=== PATIENT | male | born 2000 | race Asian ===

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

== ENCOUNTER 2022-11-21 10:28 | Emergency (ER) | payer OTHER, SELFPAY ==
[2022-11-21 10:29] VITALS: BP 129/87; PULSE 55; RESP 14; TEMP 36.1; O2SAT 100; BMI 23.3
--- NOTE | 2022-11-21 10:41 | CT_ITS ---
STUDY: CT ABDOMEN AND PELVIS WITH CONTRAST REASON FOR EXAM: Male, 22 years old. Periumbilical pain, vomiting -- IV PO Contrast RADIATION DOSAGE (If Supplied By Facility): CTDIvol = ( 8.79 ) mGy, DLP = ( 395.26 ) mGycm TECHNIQUE: Transaxial images were obtained from the dome of the diaphragm to the symphysis pubis with oral contrast. Oral and amp;amp; IV Gastrografin and amp;amp; 100mL Isovue-370 was administered. Sagittal and coronal images were reconstructed. Individualized dose optimization techniques were used for this CT. COMPARISON: None. FINDINGS: The visualized lung bases are unremarkable. The visualized portions of the heart are within normal limits. Normal liver. Normal gallbladder and extrahepatic biliary system. Normal spleen. Normal pancreas. Normal bilateral adrenal glands. Normal right kidney. Normal left kidney. Normal visualized stomach. Normal small intestine. A large amount of fecal material is seen in the right hemicolon. There is non-visualization of the appendix. Normal abdominal aorta. Normal inferior vena cava. Normal retroperitoneum. Mild to moderate degree of diffuse bladder wall thickening. Small amount of free fluid is seen in the cul-de-sac. Normal abdominal wall. Normal osseous structures. CT/Abdomen/Pelvis WITH Contrast IMPRESSION: Bladder wall thickening. Minimal amount of free fluid is seen in the cul-de-sac. The appendix is not visualized. Electronically Signed: Braxton Gaxiola MD at 12:37 EST ,
--- NOTE | 2022-11-21 10:42 | ED.VIS.GI ---
HPI HPI - GI History of Present Illness Chief Complaint: Abd Pain Informant: patient Abdominal Pain/Flank Pain Onset: Today Context: Gradual Onset Timing: Continuous Quality: Aching and Dull Location: Diffuse Current Severity: Moderate Maximum Severity: Moderate Worsened by: Nothing Relieved by: Nothing Nausea/Vomiting/Emesis GI Symptom: Positive for Nausea and Vomiting Onset: Today Quality: Positive for Nonbilious; Negative for Blood streaks, Coffee ground or Hematemesis Severity: Severe Diarrhea/Melena/Hematochezia GI Symptom: Negative for Diarrhea, Melena or Hematochezia Associated Symptoms Associated Symptoms: Negative for Dysuria, Frequency, Hematuria or Urgency Narrative Narrative: 22-year-old healthy male presenting with diffuse abdominal pain that he woke up with this morning followed by vomiting. It is nonbloody, nonbilious. No fevers or chills that he knows of. No known sick contacts. No history of any abdominal surgeries. Seen initially at urgent care, but outside of their capabilities and referred here out of concern for appendicitis and given a dose of Zofran initially. PFSH PFSH Medical History no medical history no medical history Home Medications ondansetron 4 mg disintegrating tablet 8 mg PO Q8H PRN PRN Nausea #20 tabs 11/21/22 [Rx Last Taken Unknown] Allergy/AdvReac Type Severity Reaction Status Date / Time No Known Allergies Allergy Verified 11/21/22 10:29 Surgical History no surgical history no surgical history Social History Smoking Status: Current every day smoker tobacco type: e-cigarettes ROS ROS ED Constitutional Constitutional ED: Reports malaise; Denies chills or fever(s) Eyes Eyes: Denies change in vision or diplopia ENT ENT ED: Denies rhinorrhea or sore throat Cardiovascular Cardiovascular: Denies chest pain or palpitations Respiratory/Chest Respiratory/Chest: Denies cough or dyspnea Gastrointestinal Gastrointestinal: Reports abdominal pain, nausea, vomiting and other Details: Constipation in the past. Last bowel movement 2 days ago normal. ; Denies diarrhea Genitourinary Genitourinary ED: Denies dysuria or hematuria Musculoskeletal Musculoskeletal: Denies back pain or neck pain Integumentary Denies abscess or rash Neurologic Neurologic: Denies headache(s), paresthesias or weakness Psychiatric Psychiatric: Denies anxiety or suicidal thoughts EXAM Physical Exam Const Vital Signs: 11/21/22 10:29 11/21/22 13:04 Temperature 97 F L Temperature Source Temporal Pulse Rate 55 L 69 Respiratory Rate 14 15 Blood Pressure 129/87 H 133/74 H Blood Pressure Mean 101 93 Pulse Ox 100 98 Oxygen Delivery Method Room Air Room Air Positive well nourished and well developed General Appearance ED: well developed and NAD HEENT Reports moist mucous membranes normocephalic and atraumatic Eyes PERRL and EOMs intact bilaterally Neck full ROM and supple Resp normal respiratory effort and clear to auscultation bilaterally Cardio regular rate, regular rhythm and no murmurs GI non-distended GI Narrative: Diffuse periumbilical tenderness. No palpable hernia. No distention. No guarding or rebound tenderness. Epigastric tenderness as well. Negative Rovsing, psoas, obturator. Auscultation: normoactive bowel sounds Palpation: soft Back/Spine no CVA tenderness General Back: other FROM Extremity normal to inspection General Extremety ED: Negative for edema, pulses abnormal or tenderness General Extremity: Negative for edema or pulses abnormal Neuro oriented x3, CN's II-XII intact bilaterally and no sensory deficits noted Sensorium / Orientation: awake and alert Motor Exam: strength 5/5 throughout Psych mental status grossly normal and thought process normal Skin no rashes or lesions noted and no wounds MDM MDM MDM Narrative Medical decision making narrative: Patient was given IV fluids, Reglan in addition to the Zofran he was given prior since he was still nauseated, he felt much better on reevaluation, oral and IV contrast a CT was obtained, no appendix was visualized most likely due to to the fact that it is not dilated or inflamed. There were no other acute abnormality seen on CT. My interpretation of the CT agrees with that of the radiologist. Patient is doing much better, suspect either viral illness or constipation-related symptoms, supportive care advised he was given a prescription for Zofran we discussed reasons to return he is comfortable with that plan. History & Record Review Discussion w/independent historian: Patient and Other (Nurse practitioner from urgent care) Lab Data Attestation: I reviewed the patient's lab results. Labs: Laboratory Results - last 24 hr 11/21/22 11/21/22 10:50 10:50 WBC 6.6 RBC 5.54 Hgb 16.3 Hct 47.5 MCV 85.7 MCH 29.4 MCHC 34.3 RDW Std Deviation 38.2 RDW Coeff of Marisa 12.1 Plt Count 183 MPV 9.3 Immature Gran % (Auto) 0.500 Neut % (Auto) 69.0 Lymph % (Auto) 23.1 [place] % (Auto) 5.4 Eos % (Auto) 1.8 Baso % (Auto) 0.2 Absolute Neuts (auto) 4.6 Absolute Lymphs (auto) 1.53 Nucleated RBC % 0 Sodium 138 Potassium 3.7 Chloride 103 Carbon Dioxide 28.0 Anion Gap 7 BUN 18 Creatinine 1.23 Estim Creat Clear Calc 98.92 Est GFR (MDRD) Af Amer 97 Est GFR (MDRD) Non-Af 80 BUN/Creatinine Ratio 14.6 Glucose 102 Calcium 9.6 Total Bilirubin 0.80 AST 20 ALT 24 Alkaline Phosphatase 64 Total Protein 8.0 Albumin 4.7 Globulin 3.3 Albumin/Globulin Ratio 1.4 Lipase 81 Radiography Diagnostic Testing: Clinical Impression(s) from Imaging Studies Abdomen/Pelvis CT 11/21/22 10:41 IMPRESSION: Bladder wall thickening. Minimal amount of free fluid is seen in the cul-de-sac. The appendix is not visualized. Electronically Signed: Braxton Gaxiola MD at 12:37 EST Reading Location ID and State: [facility] / [place] , Service support , Differential Diagnosis Differential Diagnosis: Viral gastritis Differential Diagnosis: Early appendicitis Discharge Plan Triage Chief Complaint: Abd Pain ED Provider: Azar Powell Dx/Rx/DC Orders Clinical Impression: Acute gastritis, Abdominal pain, periumbilical Prescriptions: New ondansetron [ondansetron] 4 mg tablet,disintegrating 8 mg PO Q8H PRN PRN (Reason: Nausea) Qty: 20 0RF Primary Care Provider: Neil Yang Referrals: Neil Yang MD [Primary Care Provider] - 3-5 Days if not improving Disposition Disposition: Home, Self Care
[2022-11-21] MEDS: Morphine 4 MG/ML Syringe IV (10:51)
[2022-11-21] MEDS: Metoclopramide 10 MG/2 ML Vial 5 MG IV (10:51)
[2022-11-21] MEDS: 0.9% Normal Saline 1,000 ML 1000 ML IV (10:52)
[2022-11-21 11:03] LABS: Absolute Lymphocyte Count 1.53 X10^3/uL (0.83-4.51); Absolute Neutrophil Count 4.6 X10^3/uL (2.0-7.7); Basophil# 0.01 X10^3/uL; Basophil% 0.2 % (0-1); Eosinophil# 0.12 X10^3/uL; Eosinophils% 1.8 % (0-5); Hematocrit 47.5 % (40-54); Hemoglobin 16.3 g/dL (13.0-16.5); Lymphocyte # 1.53 X10^3/ul (0.83-4.51); Lymphocyte % 23.1 % (19-41); Mean Corp Hgb Conc 34.3 g/dL (32-36); Mean Corpuscular Hgb 29.4 pg (27.0-32.0); Mean Corpuscular Volume 85.7 fL (80-94); Mean Platelet Vol. 9.3 fl (6.2-12.0); Monocyte# 0.36 X10^3/uL; Monocyte% 5.4 % (0-10); NRBC Flagged by Analyzer 0 % (0-5); Neutrophil # 4.57 X10^3/uL (2.7-7.7); Platelet Count 183 K/mm3 (150-450); RBC Distribution Width CV 12.1 % (11.6-14.6); RBC Distribution Width SD 38.2 fl (35.1-43.9); Red Blood Count 5.54 M/mm3 (4.6-6.2); White Blood Count 6.6 K/mm3 (4.4-11.0)
[2022-11-21 11:17] LABS: ALB/GLOB Ratio 1.4 RATIO (0.9-2.4); AST(SGOT) 20 U/L (15-37); Alanine Aminotransfer ALT/SGPT 24 U/L (16-61); Albumin, Serum 4.7 g/dL (3.2-5.0); Alkaline Phosphatase 64 U/L (45-117); Anion Gap 7 (5-15); BUN 18 mg/dL (7-18); BUN/Creat Ratio 14.6 RATIO (10-20); Calcium,Total 9.6 mg/dL (8.5-10.1); Chloride 103 mmol/L (98-107); Creatinine, Serum 1.23 mg/dL (0.70-1.30); EST Glomerular Filtration Rate 80 mL/min (>60); Est Glom Filt Rate - Afr Amer 97 mL/min (>60); Estimated Creatinine Clearance 98.92 ml/min; Globulin 3.3 g/dL (2.2-4.2); Glucose 102 mg/dL (74-106); Lipase 81 U/L (73-393); Potassium 3.7 mmol/L (3.5-5.1); Sodium Level 138 mmol/L (136-145)
[2022-11-21 13:04] VITALS: BP 133/74; PULSE 69; RESP 15; O2SAT 98
== END 2022-11-21 13:50 | disposition home or self-care (01) ==
PROVIDERS: Emergency Provider Emergency Medicine; PCP Family Medicine; Visit Provider Emergency Medicine
DX: K29.00 Acute gastritis without bleeding (principal); F17.290 Nicotine dependence, other tobacco product, uncomplicated; Z87.19 Personal history of other diseases of the digestive system
CPT/HCPCS: 74177; 80053; 83690; 85025; 96361; 96374; 96375; 99283; J7030; Q9967; A4216

== ENCOUNTER 2023-07-06 22:55 | Emergency (ER) | payer OTHER, SELFPAY ==
[2023-07-06 22:56] VITALS: BP 131/83; PULSE 101; RESP 16; TEMP 36.4; O2SAT 98; BMI 24.7
--- NOTE | 2023-07-07 00:04 | EX.ED.DYSGE1 ---
HPI History of Present Illness Chief Complaint: Head Injury Informant: patient and family Narrative Narrative: Patient is a 22-year-old male with no significant past medical history. He states roughly 1 hour prior to arrival he tripped and fell and struck the left side of his head on the counter. He denies any loss of consciousness or history of bleeding disorder or blood thinner use. He states since the time of injury he has not had a headache he denies any change in vision or light sensitivity excessive fatigue or nausea or vomiting. He does state however he sustained a laceration to his head behind his left ear and with concern he may need sutures he presents for evaluation. [facility] Medical History no medical history no medical history Home Medications ondansetron 4 mg disintegrating tablet 8 mg (2 x 4 mg) PO Q8H PRN PRN Nausea #20 tabs 11/21/22 [Rx Last Taken Unknown] Allergy/AdvReac Type Severity Reaction Status Date / Time No Known Allergies Allergy Verified 07/06/23 22:56 Surgical History no surgical history Social History Smoking Status: Current every day smoker tobacco type: e-cigarettes ROS ROS ED Constitutional Constitutional ED: Denies chills or fever(s) Eyes Eyes: Denies change in vision ENT ENT ED: Denies ear pain or sore throat Cardiovascular Cardiovascular: Denies chest pain Respiratory/Chest Respiratory/Chest: Denies cough or dyspnea Gastrointestinal Gastrointestinal: Denies abdominal pain, diarrhea, nausea or vomiting Genitourinary Genitourinary ED: Denies dysuria Musculoskeletal Musculoskeletal: Denies myalgias Integumentary Reports other Details: Positive scalp laceration ; Denies rash Neurologic Neurologic: Denies headache(s) Hematologic/Lymphatic Hematologic/Lymphatic: Denies easy bleeding or easy bruising EXAM Physical Exam Const Vital Signs: 07/06/23 22:56 07/06/23 23:20 07/07/23 00:26 Temperature 97.5 F L Temperature Source Temporal Pulse Rate 101 H 78 Respiratory Rate 16 16 Respiratory Effort Normal Blood Pressure 131/83 H 112/75 Blood Pressure Mean 99 87 Pulse Ox 98 98 Positive well nourished and well developed General Appearance ED: well developed HEENT HEENT Narrative: Behind the left ear near the mastoid process there is a 2.5 cm linear dermal layer deep laceration with minimal ooze of blood. No signs of depressed or basilar skull fracture Eyes PERRL and EOMs intact bilaterally Eyes Narrative: No hyphema Neck supple Neck Narrative: No mid line pain on palpation no bony deformity or step-off of the cervical spine Chest Wall palpation of chest normal Resp normal respiratory effort and clear to auscultation bilaterally Cardio regular rate and regular rhythm GI normal to inspection, nondistended, normoactive bowel sounds, non-tender, non-distended and no masses Auscultation: normoactive bowel sounds Palpation: soft Back/Spine Back/Spine Narrative: No bony deformity or step-off of the thoracic or lumbar spine no midline pain on palpation Extremity normal to inspection Neuro oriented x3, CN's II-XII intact bilaterally and no sensory deficits noted Sensorium / Orientation: alert Motor Exam: strength 5/5 throughout Psych mental status grossly normal Skin Skin Narrative: Laceration behind left ear as documented above MDM MDM MDM Narrative Medical decision making narrative: Patient presented to the ER with report of mechanical fall therefore there is no need for cardiac or syncope work-up. He sustained a laceration to the mastoid process of the left sided head but there are no signs of depressed or basilar skull fracture. He does not have concussion symptoms by history and physical exam and therefore at this time do not feel there is need for a CT scan. The wound was linear and came together well with pressure so therefore I do not feel there is need for tami or sutures with Dermabond would be appropriate. The wound was closed as documented below the patient is otherwise safe for discharge Patient had his left scalp wound cleaned with chlorhexidine. It was copiously irrigated with normal saline. Manual pressure was then applied to the wound edges to bring them together good approximation. Dermabond was then applied over top the wound holding together well. Patient tolerated procedure well without complication. History & Record Review Discussion w/independent historian: Patient and Family Discharge Plan Triage Chief Complaint: Head Injury Other Complaint: Laceration ED Provider: Yung Lockwood Dx/Rx/DC Orders Clinical Impression: Head injury, Scalp laceration Instructions: ED Head Injury (Adult), ED Laceration: Skin Adhesive Prescriptions: No Action ondansetron [ondansetron] 4 mg tablet,disintegrating 8 mg PO Q8H PRN PRN (Reason: Nausea) Qty: 20 0RF Primary Care Provider: Neil Yang Referrals: Neil Yang MD [Primary Care Provider] - Activity Restrictions/Additional Instructions: If you develop a change in mental status such as hard to arouse or intractable vomiting please return for repeat evaluation and potential CT scan. Otherwise your Dermabond will fall off like a scab in approximately 10 to 14 days Disposition Disposition: Home, Self Care Discharge Date/Time: 07/07/23 00:27
[2023-07-07 00:26] VITALS: BP 112/75; PULSE 78; RESP 16; O2SAT 98
== END 2023-07-07 00:27 | disposition home or self-care (01) ==
PROVIDERS: Emergency Provider Emergency Medicine; PCP Family Medicine; Referring Provider Emergency Medicine; Visit Provider Emergency Medicine
DX: S01.01XA Laceration without foreign body of scalp, initial encounter (principal); F17.290 Nicotine dependence, other tobacco product, uncomplicated; W01.198A Fall on same level from slipping, tripping and stumbling with subsequent striking against other object, initial encounter
CPT/HCPCS: 12001; 99283

== ENCOUNTER → 2024-05-01 | Outpatient (CLI) | payer OTHER, SELFPAY ==
[2024-05-01 12:26] LABS: Absolute Lymphocyte Count 1.71 X10^3/uL (0.83-4.51); Absolute Neutrophil Count 1.7 X10^3/uL (2.0-7.7); Basophil# 0.02 X10^3/uL; Basophil% 0.5 % (0-1); Eosinophil# 0.12 X10^3/uL; Eosinophils% 3.2 % (0-5); Hematocrit 48.7 % (40-54); Hemoglobin 16.6 g/dL (13.0-16.5); Lymphocyte # 1.71 X10^3/ul (0.83-4.51); Lymphocyte % 46.1 % (19-41); Mean Corp Hgb Conc 34.1 g/dL (32-36); Mean Corpuscular Hgb 28.8 pg (27.0-32.0); Mean Corpuscular Volume 84.5 fL (80-94); Mean Platelet Vol. 9.9 fl (6.2-12.0); Monocyte# 0.16 X10^3/uL; Monocyte% 4.3 % (0-10); NRBC Flagged by Analyzer 0 % (0-5); Neutrophil % 45.9 % (47-70); Platelet Count 211 K/mm3 (150-450); RBC Distribution Width CV 12.3 % (11.6-14.6); RBC Distribution Width SD 37.3 fl (35.1-43.9); Red Blood Count 5.76 M/mm3 (4.6-6.2); White Blood Count 3.7 K/mm3 (4.4-11.0)
[2024-05-01 13:06] LABS: ALB/GLOB Ratio 1.1 RATIO (0.9-2.4); AST(SGOT) 16 U/L (15-37); Alanine Aminotransfer ALT/SGPT 21 U/L (16-61); Albumin, Serum 4.4 g/dL (3.2-5.0); Alkaline Phosphatase 49 U/L (45-117); Anion Gap 3 (5-15); BUN 20 mg/dL (7-18); BUN/Creat Ratio 13.9 RATIO (10-20); Calcium,Total 9.7 mg/dL (8.5-10.1); Chloride 105 mmol/L (98-107); Cholesterol 159 mg/dL (200); Creatinine, Serum 1.44 mg/dL (0.70-1.30); EST Glomerular Filtration Rate 66 mL/min (>60); Est Glom Filt Rate - Afr Amer 79 mL/min (>60); Globulin 3.9 g/dL (2.2-4.2); Glucose 85 mg/dL (74-106); High Density Lipoprotein 55 mg/dL; Potassium 4.7 mmol/L (3.5-5.1); Protein, Total 8.3 g/dL (6.4-8.2); Sodium Level 138 mmol/L (136-145); T4 Free Direct 1.33 ng/dL (0.76-1.46); Thyroid Stim Hormone (TSH) 2.78 uIU/mL (0.358-3.74); Triglycerides 59 mg/dL; Very Low Density Lipoprotein 12 mg/dL (5-40)
== END | disposition home or self-care (01) ==
LOC: BIMLAB 10:47
PROVIDERS: PCP Internal Medicine; Referring Provider Internal Medicine; Visit Provider Internal Medicine
DX: Z00.00 Encounter for general adult medical examination without abnormal findings (principal); F41.9 Anxiety disorder, unspecified; F32.A Depression, unspecified
CPT/HCPCS: 36415; 80053; 80061; 84439; 84443; 85025